=== PATIENT | male | born 1950 | race Two or more races ===

== ENCOUNTER 2021-11-04 18:44 | Emergency (ER) | payer OTHER ==
[~2021-11-04] VITALS: Ht 172.7 cm; Wt 68.0 kg
--- NOTE | 2021-11-04 18:50 | NUR ---
KVNG [id number] FROM HOME FOR SYNCOPE. PT WAS SITTING DOWN AND FAMILY NOTICED HIM SLUMP O SIDE. + ORTHO. FAMILY HAS COVID 19. BS 155. AAOX3, BREATHING EVEN AND UNLABORED, NOT IN RSEP DISTRESS. WILL CONTINUE TO MONITOR.
[2021-11-04] MEDS ORDERED: IV NS 0.9% 500 ML BAG IV ONE (19:00)
--- NOTE | 2021-11-04 19:11 | NUR ---
xray at bedside
[2021-11-04 20:09] LABS: BASOPHILS % (AUTO) 0.3 % (0.0-2.0); EOSINOPHILS % (AUTO) 0.4 % (0.0-6.0); HEMATOCRIT 41 % (39-51); HEMOGLOBIN 14.2 g/dL (13.5-17.5); LYMPHOCYTES # (AUTO) 1.2 K/uL (0.8-4.8); LYMPHOCYTES % (AUTO) 24.2 % (20.0-44.0); MEAN CORPUSCULAR HGB CONC 35 g/dl (31.0-36.0); MEAN CORPUSCULAR VOLUME 95 fL (80-96); MONOCYTES # (AUTO) 0.7 K/uL (0.1-1.30); MONOCYTES % (AUTO) 13.8 % (2.0-12.0); NEUTROPHILS # (AUTO) 3.1 K/uL (1.8-8.9); NEUTROPHILS % (AUTO) 61.3 % (43.0-81.0); PLATELET COUNT (AUTO) 90 K/uL (150-450); RED BLOOD CELL COUNT(AUTO) 4.35 MIL/uL (4.5-6.0); WHITE BLOOD COUNT (AUTO) 5.1 K/uL (4.3-11.0)
[2021-11-04 20:37] LABS: CALCIUM, SERUM 8.2 mg/dL (8.5-10.1); CARBON DIOXIDE 23 mmol/L (21-32); CHLORIDE 95 mmol/L (98-107); CREATININE 0.8 mg/dL (0.6-1.3); GLUCOSE 92 mg/dL (74-106); POTASSIUM 4.1 mmol/L (3.5-5.1); SODIUM SERUM 129 mmol/L (136-145); UREA NITROGEN, BLOOD 18 mg/dL (7-18)
--- NOTE | 2021-11-04 20:37 | NUR ---
MAKI ([facility]) [phone]
[2021-11-04 20:42] LABS: ALANINE AMINOTRANSFERASE 60 U/L (12-78); ALBUMIN 3.1 g/dL (3.4-5.0); ALKALINE PHOSPHATASE 54 U/L (46-116); ASPARTATE AMINOTRANSFERASE 62 U/L (15-37); BILIRUBIN,DIRECT 0.2 mg/dL (0.0-0.2); TOTAL PROTEIN, SERUM 6.6 g/dL (6.4-8.2)
[2021-11-04 21:22] LABS: LYMPHOCYTES % (MANUAL) 19 % (16-48); MONOCYTES % (MANUAL) 15 % (0-11.0); NEUTROPHILS % (MANUAL) 66 (42-76)
--- NOTE | 2021-11-04 21:22 | NUR ---
IV removed. Catheter intact and site benign. Pressure and 4x4 applied to site. No bleeding noted. Called Atiya for pt to be picked up. Written and verbal after care instructions given. Patient verbalizes understanding of instruction.
[2021-11-04 22:05] VITALS: BP 121/71
--- NOTE | 2021-11-04 22:05 | NUR ---
COVID SWAB COLLECTED AND SENT TO LAB. Patient discharged to home in stable condition. Written and verbal after care instructions given. Patient AND DAUGHTER verbalizes understanding of instruction. PT ambulatory with a steady gait
[2021-11-05 00:23] LABS: BILIRUBIN,TOTAL 0.8 mg/dL (0.2-1.0)
== END 2021-11-04 22:06 | disposition home or self-care (01) ==
LOC: ER 19:04
DX: R55 Syncope and collapse (principal); Z20.822 Contact with and (suspected) exposure to COVID-19
CPT/HCPCS: 36415; 71045; 80048; 80076; 84484; 85007; 85025; 87426; 93005; 96360; 99285; C9803; J7030; J7040